=== PATIENT | female | born 1945 | race Caucasian/White ===

== ENCOUNTER 2016-05-02 05:56 | Day surgery (SDC) | payer MEDICARE, BC ==
[2016-04-30 12:07] LABS: BASOPHILS 0.3 % (0.0-2.0); EOSINOPHILS 2.1 % (0-7); HEMATOCRIT 40.6 % (36.0-48.0); HEMOGLOBIN 13.1 g/dL (12-16); IMMATURE GRANULOCYTES 0.3 % (0-5); LYMPHOCYTES 24.2 % (15-50); MCH 29.3 pg (26.0-34.0); MCHC 32.3 g/dL (31.0-37.0); MCV 90.8 fL (80.0-100.0); MEAN PLATELET VOLUME 9.5 fL (7.4-10.4); MONOCYTES 7.9 % (2-11); NEUTROPHILS 65.2 % (40-80); PLATELET COUNT 247 10x3/uL (130-400); RBC 4.47 10x6/uL (4.00-5.40); RDW 13.5 % (11.5-14.5); WBC 7.6 10x3/uL (4.8-10.8)
[2016-04-30 12:22] LABS: ANION GAP 13.5 mmol/L (8-16); CALCIUM 9.2 mg/dL (8.5-10.1); CARBON DIOXIDE 28.5 mmol/L (21.0-32.0); CREATININE - SERUM 0.9 mg/dL (0.6-1.3)
[~2016-05-02] VITALS: Ht 152.4 cm; Wt 85.7 kg
[~2016-05-02 05:56] MED LIST: BIOTIN5 MG PO; CALCIUM-MAG PO; CHROMIUM PICO200 MC1 PO; CO Q-10100 MG PO; GARLIC PO; GLUCOPHAGE500 MG PO; HYDROCHLOROTH12.5 M1 PO; LISINOPRIL5 MG PO; MULTIPLE VITAMI1 TA1 PO; NIASPAN500 MG PO; OMEGA 3-6-9 PO; PROBIOTIC1 EAC1 PO; ZOCOR20 MG PO
[2016-05-02 06:14] VITALS: BP 129/81; Ht 152.4 cm; Wt 85.7 kg
--- NOTE | 2016-05-02 07:31 | NUR ---
NOTIFIED READY DRAPING PT AT 1619
--- NOTE | 2016-05-02 07:58 | HP ---
PATIENT: RUSS GUARDADO MEDICAL RECORD: [id number] ACCOUNT: [id number] LOCATION:[facility] : 44 ADMISSION DATE: 05/02/16 HISTORY AND PHYSICAL EXAMINATION HISTORY OF PRESENT ILLNESS: This patient is a 70-year-old white female 1, para 1 with postmenopausal vaginal bleeding. She underwent an endometrial biopsy in office that was inadequate for a diagnosis. She has undergone an ultrasound 2 months ago with the uterus of 7.14 cm retroverted, normal appearing ovaries for menopause. The endometrium measured 0.31 cm; however, this patient has numerous risk factors for endometrial cancer including diabetes, hypertension, obesity, and family history and for this reason, scheduled for a thorough evaluation with hysteroscopy. PAST MEDICAL HISTORY: DRUG ALLERGIES: PENICILLIN. CURRENT MEDICATIONS: Zocor, CoQ10, chromium, garlic, niacin, daily vitamin, super probiotic, hydrochlorothiazide, lisinopril, and metformin. REVIEW OF SYSTEMS: No chest pain, no dyspnea. Positive for vaginal bleeding. FAMILY HISTORY: Positive for diabetes, heart disease, hypertension and uterine CA. SOCIAL HISTORY: The patient is . Nonsmoker. No ethanol use. PHYSICAL EXAMINATION: VITAL SIGNS: Weight is 191 pounds, giving her a BMI of 37, blood pressure 120/70. HEENT: Grossly unremarkable. LUNGS: Clear. HEART: Regular rate and rhythm. ABDOMEN: Soft and obese. PELVIC: Examination is current and deferred for anesthesia. EXTREMITIES: No cyanosis, clubbing, or edema. IMPRESSION: 1. Postmenopausal bleeding. 2. Endometrial biopsy inadequate for diagnosis, risk factors for cancer of the uterus. PLAN: Hysteroscopy, endocervical curettage, endometrial biopsy, endometrial curettage for a thorough evaluation of the endometrium and her postmenopausal bleeding. Discussed the potential risks of surgery, anesthesia, infection, bleeding, perforation of the uterus, injury to other organs and answered all her questions. TRANSINT:[id number] Voice Confirmation ID: [id number] DOCUMENT ID: [id number] HISTORY AND PHYSICAL [id number] RUSS GUARDADO LATOSHA, JACK BISHOP at 0758 CC: [id number] DICTATION DATE: 04/30/16 1530 PUBLIC INFORMATION COORDINATOR: 04/30/16 1553 REG [place] [id number]
--- NOTE | 2016-05-02 10:05 | NUR ---
DISCHARGE INSTRUCTIONS AND RX GIVEN, VOICED UNDERSTANDING. DISCHRGED HOME VIA WC.
--- NOTE | 2016-05-09 09:57 | OP ---
PATIENT NAME: RUSS GUARDADO MEDICAL RECORD: [id number] :44 LOCATION:D.[facility] ADMISSION DATE: SURGEON: CHRISTEN REINA MD DATE OF OPERATION: 05/02/2016 PREOPERATIVE DIAGNOSIS: Postmenopausal bleeding, nondiagnostic endometrial biopsy. POSTOPERATIVE DIAGNOSIS: Postmenopausal bleeding, nondiagnostic endometrial biopsy. PROCEDURE: Examination under anesthesia, endocervical curettage, cervical dilatation, endometrial biopsy, endometrial curettage and hysteroscopy. SURGEON: Christen Reina MD ANESTHESIA: General. FINDINGS: A 7.5 cm retroverted uterus with third degree uterine prolapse, endometrium with a benign appearance and atrophic. ESTIMATED BLOOD LOSS: Minimal. COMPLICATIONS: None. OPERATIVE NOTE: The patient was taken to the OR and under adequate general anesthesia, prepped and draped in the usual manner for vaginal procedures with the legs in floating boot Sam stirrups. The cervix was evaluated. Third degree prolapse was noted. Endocervical curettage was performed and sent as a separate specimen. The cervix was progressively dilated to accept the hysteroscope and hysteroscopic evaluation revealed the above listed findings. Endometrial biopsies were taken randomly of the atrophic appearing endometrium. All instruments were then removed and endometrial curettage performed. All instruments were removed from the vagina and the patient went to recovery area in good condition. TRANSINT:[id number] Voice Confirmation ID: [id number] DOCUMENT ID: [id number] CHRISTEN REINA MD at 0957 CC: [id number] DICTATION DATE: 05/02/16 0808 ETIQUETTE TEACHER: 05/02/16 0846 [facility] 05/02/16 [place] [id number]
== END 2016-05-02 10:05 | disposition home or self-care (01) ==
LOC: D.OPS 05:56 → D.PAN 07:30 → D.OPS 09:15 → D.PAN 09:15 → D.OPS 10:05
PROVIDERS: Obstetrics & Gynecology
DX: N95.0 Postmenopausal bleeding (principal); I10 Essential (primary) hypertension; E11.9 Type 2 diabetes mellitus without complications

== ENCOUNTER → 2017-01-02 17:02 | Outpatient (CLI) | payer MEDICARE, BC ==
[2016-05-02 06:14] VITALS: BMI 36.9
== END | disposition home or self-care (01) ==
LOC: D.MAMMO 16:15
DX: Z12.31 Encounter for screening mammogram for malignant neoplasm of breast (principal)

== ENCOUNTER 2017-05-01 09:44 | Emergency (ER) | payer MEDICARE, BC ==
[2016-05-02 06:14] VITALS: BMI 36.9
== END 2017-05-01 11:58 | disposition home or self-care (01) ==
LOC: D.ER 09:44
DX: J06.9 Acute upper respiratory infection, unspecified (principal); I10 Essential (primary) hypertension; E11.9 Type 2 diabetes mellitus without complications

== ENCOUNTER → 2018-01-03 08:00 | Outpatient (CLI) | payer MEDICARE, BC ==
[2016-05-02 06:14] VITALS: BMI 36.9
== END | disposition home or self-care (01) ==
LOC: D.MAMMO 08:00
DX: Z12.31 Encounter for screening mammogram for malignant neoplasm of breast (principal)

== ENCOUNTER → 2018-02-11 19:45 | Outpatient (CLI) | payer MEDICARE, BC ==
[2016-05-02 06:14] VITALS: BMI 36.9
== END | disposition home or self-care (01) ==
LOC: D.MAMMO 08:30
DX: R92.8 Other abnormal and inconclusive findings on diagnostic imaging of breast (principal)

== ENCOUNTER 2019-02-12 05:00 | Day surgery (SDC) | payer MEDICARE, BC ==
[2019-02-10 12:46] LABS: BASOPHILS 0.3 % (0-2); EOSINOPHILS 3.1 % (0-7); HEMATOCRIT 41.9 % (36.0-48.0); HEMOGLOBIN 13.5 g/dL (12-16); IMMATURE GRANULOCYTES 0.1 % (0-5); LYMPHOCYTES 27.6 % (15-50); MCH 29.7 pg (26.0-34.0); MCHC 32.2 g/dL (31.0-37.0); MCV 92.3 fL (80.0-100.0); MEAN PLATELET VOLUME 9.3 fL (7.4-10.4); MONOCYTES 8.6 % (2-11); NEUTROPHILS 60.3 % (40-80); PLATELET COUNT 262 10x3/uL (130-400); RBC 4.54 10x6/uL (4.00-5.40); RDW 13.7 % (11.5-14.5); WBC 7.3 10x3/uL (4.8-10.8)
[2019-02-10 13:02] LABS: ANION GAP 11.8 mmol/L (8-16); CARBON DIOXIDE 31.3 mmol/L (21.0-32.0); POTASSIUM - SERUM 4.1 mmol/L (3.5-5.1)
[2019-02-12] VITALS (12 sets, daily range): BP systolic 88–149; BP diastolic 33–84; Ht 152.4 cm; Wt 83.6 kg
[~2019-02-12] VITALS: Ht 152.4 cm; Wt 83.6 kg
[~2019-02-12 05:00] MED LIST changes: +APPLE CIDER VINEGAR PO; +SUPER B COMPLEX PO
--- NOTE | 2019-02-12 10:40 | NUR ---
AXIS DERMIS COLOPLAST REF [id number] LOT [id number] EXP 09/29/2023
--- NOTE | 2019-02-12 12:15 | NUR ---
RECEIVED 73 Y/O WELL NOURISHED WHITE FEMALE FROM PACU ACCOMPANIED BY PACU NURSE DENISSE. EYES CLOSED BUT WAKENS TO VERBAL STIMULI. O2 SAT 92% ON 2 L/MIN PER NASAL CANNULA. ASKED TO DEEP BREATHE AND COUGH WITH RESULT INCREASE IN O2 SAT TO 94%. BBS= AND CTA. BOWEL SOUNDS DISTANCE. 3 STAB WOUNDS ON ABD, 1 AT UMBILICUS AND ONE ON EACH LOWER ABD QUADRANT INTACT WITH MARGINS WELL APPROXIMATED WITH DERMABOND. BRUISING AT UMBILICUS. VAGINAL PACKING REPORTED INTACT BY DENISSE, NONE SEEN. PERIPAD APPLIED NOTING NO VAGINAL DRAINAGE. DENIES PAIN, NAUSEA OR URGE TO VOID. HOB ELEVATED. SKIN WARM DRY AND PINK/SLIGHTLY PALE. PIV LEFT HAND PATENT W/SALINE AT 125ML/HR PER IV PUMP; NO SIGNS OF COMPLICATIONS AT SITE.
--- NOTE | 2019-02-12 12:40 | NUR ---
DR RALPH AT BEDSIDE. FOB AND SON AT BEDSIDE STATING THEY ARE GOING TO GET LUNCH THEN RETURN. REMAINS STABLE WITH NO SIGNS OF DISTRESS NOTED OR REPORTED. PULLED UP IN BED THEN HOB TO 45 DEGREES. DEEP BREATHING AND COUGHING WHILE SPLINTING ABD INCISIONS HAS RAISED O2 SAT TO 96%, STILL ON 2L/MIN PER NASAL CANNULA. STATES HER FBS AT HOME IS USUALLY 100 AND THAT SHE DID TAKE LISINOPRIL THIS MORNING. REMINDED SHE WILL HAVE TO CALL FOR ASSIST TO GET OUT OF BED TO VOID. CALL NITHYA W/IN REACH. SLEEPING AT INTERVALS.
--- NOTE | 2019-02-12 12:45 | NUR ---
STEPHANIE ICE CHIPS. DENIES PAIN OR NAUSEA
--- NOTE | 2019-02-12 13:21 | OP ---
PATIENT NAME: RUSS GUARDADO MEDICAL RECORD: [id number] :44 LOCATION:[facility]1223 ADMISSION DATE: SURGEON: PARAG SALGUERO MD DATE OF OPERATION: 02/12/2019 SURGEON: Parag Salguero MD ANESTHESIA: General anesthesia by Yannick Loaiza MD DIAGNOSIS: Midline cystocele, Dubois-Walker, grade III. PROCEDURE: Cystoscopy, cystocele repair using Coloplast Hungerford dermis 8 x 12 cm. FINDINGS: On cystoscopy, single ureteral orifices bilaterally with no bladder tumors and no bladder injury. ESTIMATED BLOOD LOSS: 100 mL. CLINICAL HISTORY: This is a 73-year-old female, G2, P2, A0 who still had her uterus. She had pelvic prolapse since at least 2016 when it was noticed by Dr. Greene of gynecology. The patient herself has noticed bulging in the vaginal area since 2011. Her previous doctors have not offered surgery to her. She is having issues with nocturia. She has diabetes mellitus type 2, which also makes her urinate frequently. She has urge incontinence and symptoms of stress urinary incontinence. When I examined her, she had a grade III cystocele. I did not see any stress urinary incontinence even with reduction of the cystocele. Today, she is having a vaginal hysterectomy to be performed by Dr. Shaver. Afterwards, I will perform a cystocele repair using cadaveric dermis for the graft material. She is allergic to PENICILLIN. She was given Levaquin IV long lines operator to the OR. DESCRIPTION OF PROCEDURE: The patient was already in lithotomy position under general anesthesia. Dr. Shaver has finished the hysterectomy. He had intended to perform a sacrospinous ligament suspension, but this was not feasible as the ligaments were very short. However, he felt that the area of potential defect around the cuff was so small that an enterocele should not be a problem. I placed her in Trendelenburg position and placed a weighted speculum to hold the posterior vaginal wall down. She has a Nelson catheter indwelling already. Number 1 nylon suture was used to retract the labia majora laterally. These were anchored to the medial thighs. We then infiltrated the anterior vaginal wall with a vasopressin solution. Twenty units of vasopressin dissolved in 100 mL of injectable normal saline was used for hydrodissection. A transverse incision was then made at the level of the bladder neck. Dissection was made using Metzenbaum scissors. The pubocervical fascia was taken down on each side, releasing the attachments to the arcus tendineus. Anteriorly, we entered the space of Retzius. Posteriorly, we entered the presacral space to clear the sacrospinous ligament and its attachment at the ischial spine. Four Capio sutures were then placed using 2-0 Prolene sutures. The 2 posterior ones went 1 cm medial to the ischial spine in the sacrospinous ligament. The anterior repair went into the Dhruv's ligament. On the left side, I attempted to place the suture there and I triggered a nerve reflex, which may be the obturator nerve. I therefore tried to go more anteriorly in order to avoid hitting the obturator nerve. I measured the distance from the incision to the apex of the vaginal cuff. This measured out at 5 cm. We then removed the Nelson catheter. Cystoscopy was performed using a 17-English cystoscope with 30-degree OPERATIVE REPORT [id number] RUSS GUARDADO. No bladder injury was seen. The bladder was then emptied through the cystoscope sheath. The 8 x 12 cadaveric dermis graft was then placed on the table and I cut out on arch with the distance between the apex of the arch on the opposite side being 5 cm. The graft was rehydrated in normal saline solution. The 4 suspensory sutures were placed through the respective corners. The posterior repair were tied down first. Then, the anterior repair were tied down. This resulted in reduction of the cystocele. The wound was irrigated out using normal saline. The closure of the vaginal incision was made using running 4-0 Monocryl. Vaginal packing was then placed. This was 2-inch Kerlix with estrogen cream. The vaginal packing will be removed today prior to her going home. The patient does not have a Nelson catheter. We will have a voiding trial for her today. If she is unable to void, then she will go home with an indwelling Nelson catheter. I will see her in followup next week to check on her voiding symptoms. TRANSINT:[id number] Voice Confirmation ID: [id number] DOCUMENT ID: [id number] PARAG SALGUERO MD at 1321 CC: [id number] DICTATION DATE: 02/12/19 1135 GRAVITY PROSPECTOR: 02/12/19 1307 [facility] [address] [facility] [place] [address]
--- NOTE | 2019-02-12 13:30 | NUR ---
SITTING UP IN BED TALKING WITH FAMILY. O2 SAT 100% ON 2L/M PER NASAL CANNULA. O2 DECREASED TO 1L/M PER NASAL CANNULA
--- NOTE | 2019-02-12 13:40 | NUR ---
DR SALGUERO AT BEDSIDE STATING PATIENT COULD GO 6-8 HOUR BEFORE VOIDING OR IF UNCOMFORTABLE BEFORE THEN COULD INSERT INDWELLING ULLOA CATH AND LEAVE IN UNTIL THE MORNING AT WHICH TIME COULD BE DISCONTINUED AGAIN AND IF UNABLE TO VOID AFTER CATHETER REMOVED, TO CALL DR SALGUERO FOR FURTHER INSTRUCTIONS. PATIENT INSTRUCTED ON SAME
--- NOTE | 2019-02-12 14:00 | NUR ---
O2 SAT REMAINS 100%. O2 STOPPED BUT CANNULA LEFT IN PLACE. CLEANSED BACK OF DRIED BLOODY DRAINAGE, TURNING PATIENT BACK AND FORTH TO REMOVED SOILED LINENS. COMPLAINS OF SLIGHT DIZZINESS AFTER MOVING. RETURNED TO BACK. DEEP BREATHING AND COUGHING PERFORMED.
--- NOTE | 2019-02-12 14:20 | NUR ---
O2 SAT 90% ON ROOM AIR AFTER DILAUDID GIVEN. O2 RESUMED AT 2L/MIN PER NASAL CANNULA WITH RISE IN O2 SAT TO 96% BY 1 MIN LATER.
--- NOTE | 2019-02-12 14:27 | NUR ---
DENIES URGE TO VOID. REPORTS FULL FEELING SHE HAS IS IN PERINEAL AREA, NOT BLADDER AREA. REPORTS PAIN AT LEVEL 2 NOW AFTER DILAUDID GIVEN. ATTENTIVE AT BEDSIDE. SKIN WARM DRY AND PINK.
--- NOTE | 2019-02-12 14:28 | NUR ---
O2 sat 92% on 2 l/m per nasal cannula so increased to 3L/min. O2 SAT INCREASED TO 94-96%
--- NOTE | 2019-02-12 15:00 | NUR ---
O2 SAT 97%. O2 DECREASED TO 2L/MIN PER NASAL CANNULA. PATIENT TURNED SELF TO LEFT SIDE AND WHEN ASKED IF COULD TRY CLEAR LIQ, SAYS YES. CLEAR LIQUID DIET PROVIDED. PATIENT REPORTS DIZZINESS AFTER HOB FLATTENED TO HELP HER MOVE UP IN BED. HOB BACK U P TO45 DEGREES FOR DRINKING LIQUID. REMINDED SHE MUST ATTEMPT TO VOID BY 1925 OR HAVE CATHETER REPLACED. DENIES URGE TO VOID. REPORTS PAIN AT LEVEL 2
--- NOTE | 2019-02-12 16:00 | NUR ---
SLEEPING OFF AND ON. NO SIGNS OF DISTRESS. VSS.
--- NOTE | 2019-02-12 17:15 | NUR ---
ASSISTED TO BATHROOM TO VOID 80ML DARK RED AND CLEAR. VAGINAL PACKING NOTED HANGING OUT OF VAGINAL OS; LEFT INTACT. REPORTS SLIGHT DIZZINESS CONTINUING BUT FEELS BETTER AFTER GETTING ZOFRAN FOR NAUSEA. ASSISTED BACK TO BED. FAMILY HERE TO VISIT. O2 CONT AT 2L/M PER NASAL CANNULA PATIENT DESATURATES WHEN SLEEPING, TO 94%
--- NOTE | 2019-02-12 18:50 | NUR ---
PT NAUSEATED, VOMITS APPROX 30-40ML CLEAR YELLOW FLUID. PT C/O DRY MOUTH AND DRINKING FLUIDS TO SATIATE THAT FEELING. PT ENCOURAGED TO SLOW DOWN ON FLUIDS, AND TAKE SMALL SIPS OR EAT ICE CHIPS. PT AGREES SHE WOULD LIKE ICE CHIPS, GIVEN REQUESTED. PT DENIES HAVING SCOPALAMINE PATCH PLACED, THIS RN AND GEETA DORMAN UNABLE TO LOCATE PATCH ON PT ORDERED. FSBS CHECKED PER PT DIABETIC STATUS. FSBS NOTED TO BE 191. PT STATES SHE USUALLY TAKES 500MG METFORMIN DAILY IN EVENINGS. DR RALPH PHONED AND NOTIFIED. ORDER RCVD TO APPLY PATCH ORDERED, AND RESTART PT'S HOME MEDS IF ABLE TO TOLERATE PO. PHARMACY NOTIFIED OF NEED FOR MEDS. PM SHIFT GIVEN REPORT.
--- NOTE | 2019-02-12 20:20 | NUR ---
PT RESTING IN BED. FAMILY MEMBER RESTING ON COUCH AT BEDSIDE. ASSESSMENT COMPLETE PER FLOWSHEET. VSS. PT DENIES ANY C/O PAIN. ABD INCISION X2 C/D/I WITH DERMABOND. UMBILICUS INCISION C/D/I WITH DERMABOND. VAG PACK NOTED. SMALL AMOUNT OF BLEEDING NOTED ON PERIPAD. IV PATENT AND WITHOUT REDNESS OR TENDERNESS INFUSING LR @ 125ML/HR. SCDS ON BLE. O2 ON AT 2L VIA NC. PT USING IS PROPERLY. POC DISCUSSED. QUESTIONS ANSWERED. BED IN LOW POSITION. SRUP X2. CALL LIGHT WITHIN PTS REACH.
--- NOTE | 2019-02-12 21:30 | NUR ---
PT UP TO BATHROOM WITH ASSISTANCE AND VOIDED 175ML OF BLOOD COLORED URINE. PT ASSISTED BACK TO BED. TOLERATED WELL.
--- NOTE | 2019-02-12 22:30 | NUR ---
PT RESTING IN BED. IS PERFORMED BY PT. PT DENIES ANY COMPLAINTS. ICE CHIPS AND JUICE PROVIDED. INSTRUCTED PT TO NOTIFY NURSE WITH ANY PROBLEMS, NEEDS, OR CONCERNS. VERBALIZED UNDERSTANDING.
[2019-02-13 00:55] VITALS: BP 96/47
--- NOTE | 2019-02-13 00:55 | NUR ---
PT RESTING IN BED. VS OBTAINED. PT DENIES ANY C/O PAIN AT THIS TIME. KAILASH PATENT AND WITHOUT REDNESS OR TENDERNESS. CALL LIGHT WITHIN PTS REACH.
[2019-02-13 01:20] VITALS: BP 92/53
--- NOTE | 2019-02-13 01:20 | NUR ---
PT UP TO BATHROOM WITH ASSISTANCE. PT VOIDED 225ML OF BLOOD COLORED URINE. VAG PACKING HANGING DOWN AND INTO SPECIPAN WITH URINE. VAG PACK GENTLY REMOVED BY THIS RN AND OBSERVED BY GEETA REMY. SOME VAGINAL BLOOD DRIPPING FROM VAGINA TO FLOOR NOTED PT STOOD UP TO PUT ON CLEAN PAD AND PANTIES. PT ASSISTED BACK TO BED. WILL CONTINUE TO MONITOR PT FOR EXCESSIVE VAGINAL BLEEDING. PT DENIES ANY COMPLAINTS AND TOLERATED WELL. INSTRUCTED PT TO NOTIFY NURSE WITH ANY PROBLEMS, NEEDS, OR CONCERNS. VERBALIZED UNDERSTANDING. BED IN LOW POSITION, SRUP X2, CALL LIGHT WITHIN PTS REACH.
--- NOTE | 2019-02-13 01:22 | NUR ---
ASSISTED RN WITH REMOVING VAG PACKING. PACKING WAS 3/4 OUT AND TOUCHING URINE IN [facility]. REMAINDER OF PACKING REMOVED PER GEETA RODRIGUEZ. PT TOLERATED WELL.
--- NOTE | 2019-02-13 03:05 | NUR ---
PT UP TO BATHROOM WITH ASSISTANCE AND VOIDED 200ML OF PINK TINGED URINE. PERIPAD CHANGED WITH A SMALL AMOUNT OF VAGINAL BLEEDING NOTED ON OLD PERIPAD. PT ASSISTED BACK TO BED AND TURNED TO A RIGHT TILT ALONG WITH DEEP BREATHING AND COUGHING. PILLOW PLACED BETWEEN LEGS FOR COMFORT. PT DENIES ANY C/O PAIN. NO OTHER REQUEST MADE. INSTRUCTED PT TO NOTIFY NURSE WITH ANY PROBLEMS, NEEDS, OR CONCERNS. VERBALIZED UNDERSTANDING. BED IN LOW POSITION, SRUPX2. CALL LIGHT WITHIN PTS REACH.
[2019-02-13 04:50] VITALS: BP 91/45
--- NOTE | 2019-02-13 04:50 | NUR ---
PT RESTING IN BED. VS OBTAINED. PT DENIES ANY C/O PAIN AT THIS. ABD INCISION C/D/I WITH DERMABOND. SMALL AMOUNT OF VAGINAL BLEEDING NOTED ON PERIPAD. IV PATENT AND WITHOUT REDNESS AND TENDERNESS. PT COMPLIANT WITH USING IS. SCDS ON BLE. NO REQUEST MADE. INSTRUCTED PT TO NOTIFY NURSE WITH ANY PROBLEMS, NEEDS, OR CONCERNS. VERBALIZED UNDERSTANDING. BED IN LOW POSITION, SRUP X2. CALL LIGHT WITHIN PTS REACH.
--- NOTE | 2019-02-13 06:18 | NUR ---
PT RESTING COMFORTABLY IN BED. DENIES ANY COMPLAINTS. NO REQUEST MADE. INSTRUCTED PT TO NOTIFY NURSE WITH ANY PROBLEMS, NEEDS, OR CONCERNS. VERBALIZED UNDERSTANDING. BED IN LOW POSITION. SRUP X2. CALL LIGHT WITHIN PTS REACH.
[2019-02-13 07:15] VITALS: BP 96/48
--- NOTE | 2019-02-13 07:54 | NUR ---
DR. RALPH IN ROOM AT THIS TIME. DR. RALPH NOTIFIED OF PT'S LOW B/P'S & WILL HOLD B/P MEDS TODAY.
--- NOTE | 2019-02-13 09:14 | NUR ---
ASSISTED PT TO BATHROOM. PT VOID 300CC OF PINK TINGED URINE. THERE WAS A SCANT AMOUNT OF BLOOD TO PAD. CHANGED PAD AT THIS TIME. ASSISTED PT BACK TO BED. NO OTHER NEEDS AT THIS TIME. WILL CTM
--- NOTE | 2019-02-13 10:00 | NUR ---
PT SITTING UP AWAKE & ALERT W/ NO C/O AT THIS TIME. IV SALINE LOCKED AT THIS TIME.
--- NOTE | 2019-02-13 10:15 | NUR ---
D/C INSTRUCTIONS WRITTEN & VERBAL REVIEWED W/ PT. PT VOICED UNDERSTNADING OF ALL INSTRUCTIONS GIVEN. PT'S IV D/C'ED AT THIS TIME. RX ALSO GIVEN TO PT AT THIS TIME.
--- NOTE | 2019-02-13 14:50 | NUR ---
RN SPOKE W/ PT'S SPOUSE WHO WAS WITH PT TODAY. NOTIFIED PT'S SPOUSE OF TORADOL RX LEFT & WILL CALL INTO [facility]. PT'S VOICES UNDERSTANDING.
--- NOTE | 2019-02-13 14:55 | NUR ---
TORADOL RX CALLED IN TO [facility].
--- NOTE | 2019-03-05 08:15 | OP ---
PATIENT NAME: RUSS GUARDADO MEDICAL RECORD: [id number] :44 LOCATION:D.[facility] ADMISSION DATE: SURGEON: FABRICIO RALPH MD DATE OF OPERATION: 02/12/2019 PREOPERATIVE DIAGNOSES: 1. Third-degree cystocele. 2. Third-degree uterine prolapse. POSTOPERATIVE DIAGNOSES: 1. Third-degree cystocele. 2. Third-degree uterine prolapse. 3. Pelvic adhesions. PROCEDURES: 1. Diagnostic laparoscopy. 2. Laparoscopic lysis of adhesions. 3. Total laparoscopic hysterectomy, bilateral salpingectomy-oophorectomy. SURGEON: Fabricio Ralph MD RELATIONS COORDINATOR: Brooks ANESTHESIOLOGIST: Dr. Loaiza ANESTHESIA: General. FINDINGS: The anterior vault prolapses to the introitus. The cervix is noted to be within 1 cm of the hymenal ring. At the time of laparoscopy, the filmy adhesions were encountered along the left pelvic sidewall and ovary to the bowel. Tubes and ovaries are otherwise unremarkable as well as the uterus. SPECIMENS REMOVED: 1. Uterus. 2. Bilateral tubes. 3. Bilateral ovaries. SPECIMEN DISPOSITION: All specimens to pathology. ESTIMATED BLOOD LOSS: For this portion of the procedure is less than or equal to 100 cc. FLUIDS: 1900 cc of lactated Ringer's. URINE OUTPUT: 120 cc of clear urine. COMPLICATIONS: None. DRAINS: Nelson to gravity. INDICATIONS: The patient is a 73-year-old female who has been scheduled for anterior colporrhaphy with urology. The patient is also noted to have uterine prolapse. The patient has been referred and counseled in regards to the hysterectomy. The patient is consented for a hysterectomy and possible vault suspension. Her anterior colporrhaphy will be performed after completion of the OPERATIVE REPORT [id number] RUSS GUARDADO hysterectomy. DESCRIPTION OF PROCEDURE: After informed consent was assured, the patient was taken to the operating room where anesthetic was obtained. The patient was placed [facility] stir[facility] and prepped and draped. Uterine manipulator was placed and then attention was directed to the abdomen where an incision was made. Trocar inserted and pneumoperitoneum developed. Accessory ports were placed in left and right lower quadrants. An 11-mm port was placed in the right lower quadrant. Other ports were 5-mm ports. Using the uterine manipulator and a grasper, the left tube was elevated and the adhesions that were encountered there were taken down sharply. The ovary was now elevated using a Thunderbeat coagulation cutter. The dissection now begins across the infundibulopelvic ligament underneath the left ovary and tube and down along the broad ligament. The anterior leaf of the broad ligament was opened and the bladder flap developed to the midline. The posterior leaf was dissected free the vascular bundle on the left, which was now compressed and coagulated. Attention was now directed to the right side. With the right tube and ovary elevated, the infundibulopelvic ligament was grasped, collapsed and coagulated. After cutting through the infundibulopelvic ligament, the dissection again was carried out underneath the ovary and tube. This dissection was carried over the round ligaments and the anterior leaf of the broad ligament was opened and the bladder flap fully developed. The posterior tissues were dissected free the vascular bundle, which was now compressed, coagulated, and at the level of the internal os. The vaginal vault was now entered at the 6 o'clock position. The dissection was carried out from 6-3 and 12-3. The dissection now concludes from the left hand side. The dissection on the left was concluded from 12 going counterclockwise to the 6 o'clock position. Uterus was pulled through the vagina and the cuff was inspected. Pneumoperitoneum was maintained with a glove in the vaginal vault. Using an EndoStitch the cuff was now closed with interrupted Vicryl sutures. Once the close of the cuff was completed, the pelvis was irrigated and irrigant removed. The uterosacral ligaments were incorporated into the vaginal closure at the corners. Sponge, lap, and needle counts correct times 2. The pneumoperitoneum was released and all ports were removed and the skin sites closed. For the remaining portion of this combined procedure, please see the urology note. TRANSINT:[id number] Voice Confirmation ID: [id number] DOCUMENT ID: [id number] 03/04/2019 Edited procedure list, dmm. FABRICIO RALPH MD at 0815 CC: [id number] DICTATION DATE: 02/12/19 0956 EXPORT DOCUMENTS CLERK: 02/12/19 1120 [facility] 02/13/19 [place] [id number] [place] [address]
== END 2019-02-13 10:40 | disposition home or self-care (01) ==
LOC: D.OPS 05:00 → D.PAN 07:00 → D.OPS 07:30 → D.WS 12:00 → D.OPS 02-13 10:40
PROVIDERS: Obstetrics & Gynecology; ATTEND Urology
DX: N81.11 Cystocele, midline (principal)

== ENCOUNTER → 2019-03-20 09:00 | Outpatient (CLI) | payer MEDICARE, BC ==
[2019-02-12 13:30] VITALS: BMI 36.0
== END | disposition home or self-care (01) ==
LOC: D.MAMMO 09:00
PROVIDERS: ATTEND Family Medicine Adult Medicine
DX: Z12.31 Encounter for screening mammogram for malignant neoplasm of breast (principal)